=== PATIENT | female | born 1940 | race Caucasian/White ===

== ENCOUNTER 2019-11-05 09:48 | Inpatient (IN) ==
[2019-11-05] MEDS ORDERED: Acetaminophen IV 1,000 MG/100 ML INFUS..BTL IVPB ONE (10:13)
[2019-11-05] MEDS ORDERED: *HR* HYDROmorphone PF 0.5 MG/0.5 ML SYRINGE IVP PRN (10:13)
[2019-11-05] MEDS ORDERED: *HR* OxyCODONE Immed Rel 5 MG TABLET PO PRN (10:13)
[2019-11-05] MEDS ORDERED: *HR* Meperidine 25 MG/ML SYRINGE IVP PRN (10:13)
[2019-11-05] MEDS ORDERED: Ondansetron 4 MG/2 ML VIAL IVP ONE (10:13)
[2019-11-05] MEDS ORDERED: *HR* FentaNYL (PF) 100 MCG/2 ML VIAL ONE (10:18)
[2019-11-05] MEDS ORDERED: *HR* Midazolam HCl 2 MG/2 ML VIAL ONE (10:18)
[2019-11-05] MEDS ORDERED: Lidocaine -MPF 2% 2 ML VIAL ONE (10:20)
[2019-11-05] MEDS ORDERED: Ondansetron 4 MG/2 ML VIAL ONE (10:20)
[2019-11-05] MEDS ORDERED: *HR* Propofol 200 MG/20 ML VIAL IVP ONE ×2 (10:20→12:57)
[2019-11-05] MEDS ORDERED: *HR* Succinylcholine 200 MG/10 ML VIAL IVP ONE (10:20)
[2019-11-05] MEDS ORDERED: Dexamethasone 4 MG/ML VIAL ONE (10:20)
[2019-11-05] MEDS ORDERED: Scopolamine Patch 1.5 MG PATCH.TD72 TD ONE (10:39)
[2019-11-05] MEDS ORDERED: CeFAZolin Syr 2,000MG/20 ML 2,000 MG/20 ML SYRINGE IVPB ONE (10:40)
[2019-11-05] MEDS ORDERED: Ringers Solution, Lactated 1,000 ML IVC SCH ×2 (10:45→14:33)
[2019-11-05] MEDS ORDERED: Ropivacaine/PF 0.5% 30 ML VIAL ONE (11:00)
[2019-11-05] MEDS ORDERED: Ethanol\\Acetic Acid\\Na Ace\\Ben 1,000 ML IRRIG.SOLN IR ONE (11:12)
[2019-11-05] MEDS ORDERED: Famotidine 20 MG/2 ML VIAL ONE (11:53)
[2019-11-05] MEDS ORDERED: Metoclopramide 10 MG/2 ML VIAL ONE (12:18)
[2019-11-05 14:11] LABS: Hematocrit 34.2 % (35.3-44.9); Hemoglobin 11.6 g/dL (11.5-15.4)
[2019-11-05] MEDS ORDERED: D5% in Water 1,000 ML IVC PRN (14:33)
[2019-11-05] MEDS ORDERED: *HR* Dextrose 50 % in Water (Syg) 50 ML SYRINGE IVP PRN (14:33)
[2019-11-05] MEDS ORDERED: Dextrose Gel 15 GM/37.5 ML TUBE PO PRN ×2 (14:33)
[2019-11-05] MEDS ORDERED: Ondansetron 4 MG/2 ML VIAL IVP PRN (14:33)
[2019-11-05] MEDS: Insulin LISPRO 300 UNITS/3 ML VIAL SQ SCH ×2 (15:18→17:27)
[2019-11-05] MEDS: *HR* Enoxaparin 30 MG/0.3 ML SYRINGE SQ SCH (17:32)
[2019-11-05] MEDS ORDERED: Metoprolol XL (24 HR) Succ 25 MG TAB.ER.24H PO SCH (18:00)
[2019-11-05] MEDS ORDERED: polyethylene glycoL 3350 17 GM POWD.PACK PO SCH (18:00)
[2019-11-05] MEDS ORDERED: *HR* Enoxaparin 30 MG/0.3 ML SYRINGE SQ SCH (18:00)
[2019-11-05] MEDS ORDERED: estradioL 1 MG TABLET PO SCH (18:00)
[2019-11-05] MEDS: ceFAZolin 2,000 MG in 0.9 % Sodium Chloride 100 ML IVPB SCH (20:40)
[2019-11-05] MEDS: *HR* Metformin 500 MG TABLET PO SCH (20:40)
[2019-11-05] MEDS ORDERED: Sennosides 8.6 MG TABLET PO PRN (21:00)
[2019-11-05] MEDS ORDERED: Temazepam 15 MG CAPSULE PO PRN (21:00)
[2019-11-05] MEDS ORDERED: Insulin LISPRO 300 UNITS/3 ML VIAL SQ SCH (21:00)
[2019-11-05] MEDS ORDERED: MOM Conc 10 ML UD.LIQ PO PRN (21:00)
[2019-11-05] MEDS ORDERED: HYDROcodone BIT/Homatropine 5 MG TABLET PO PRN (21:01)
[2019-11-05] MEDS ORDERED: Naloxone 0.4 MG/ML INJ IVP PRN (21:01)
[2019-11-05] MEDS: *HR* OxyCODONE Immed Rel 5 MG TABLET PO PRN (23:11)
[2019-11-06 03:12] LABS: Hematocrit 32.2 % (35.3-44.9); Hemoglobin 10.5 g/dL (11.5-15.4)
[2019-11-06 03:29] LABS: BUN/Creatinine Ratio 24 (6-26); Blood Urea Nitrogen 17 mg/dL (8-23); Calcium 9.1 mg/dL (8.6-10.3); Carbon Dioxide 24 mEq/L (23-29); Chloride 105 mEq/L (98-107); Glucose 169 mg/dL (70-105); Osmolality,Calculated 289 (280-300); Potassium 3.6 mEq/L (3.5-5.1); Sodium 137 mEq/L (136-145); eGFR For African Americans > 60 (> 60); eGFR For Non-African Americans > 60 (> 60)
[2019-11-06] MEDS: ceFAZolin 2,000 MG in 0.9 % Sodium Chloride 100 ML IVPB SCH (04:51)
[2019-11-06] MEDS: *HR* Enoxaparin 30 MG/0.3 ML SYRINGE SQ SCH (06:34)
[2019-11-06 07:03] VITALS: BP 119/58
[2019-11-06] MEDS ORDERED: Magnesium Oxide 400 MG TABLET PO SCH (09:00)
[2019-11-06] MEDS ORDERED: Cholecalciferol (D-3) 1,000 UNIT (25MCG) TABLET PO SCH (09:00)
[2019-11-06] MEDS ORDERED: SELENIUM 100 MCG PO SCH (09:00)
[2019-11-06] MEDS ORDERED: Ascorbic Acid 500 MG TABLET PO SCH (09:00)
[2019-11-06] MEDS ORDERED: NON-FORMULARY MEDICATION 1 EACH EACH (Biotin 1 MG) PO SCH (09:00)
[2019-11-06] MEDS ORDERED: BETA CAROTENE 10000 UNIT PO SCH (09:00)
[2019-11-06] MEDS ORDERED: Vitamin E 200 UNIT (90MG) CAPSULE PO SCH (09:00)
[2019-11-06] MEDS: Insulin LISPRO 300 UNITS/3 ML VIAL SQ SCH (09:53)
[2019-11-06] MEDS: *HR* Metformin 500 MG TABLET PO SCH (09:59)
[2019-11-06] MEDS: *HR* OxyCODONE Immed Rel 5 MG TABLET PO PRN (10:05)
== END 2019-11-06 13:22 | disposition home or self-care (01) | DRG 483 ==
LOC: SAMDAY 09:48 → 3NENU 14:55
PROVIDERS: ADMIT Orthopaedic Surgery; ATTEND Orthopaedic Surgery

== ENCOUNTER 2019-11-30 12:44 | Inpatient (IN) ==
[2019-11-30] MEDS ORDERED: Ondansetron 4 MG/2 ML VIAL IVP PRN (16:01)
[2019-11-30] MEDS ORDERED: Naloxone 0.4 MG/ML INJ IVP PRN (16:01)
[2019-11-30] MEDS ORDERED: Gadolinium Contrast Agent (WT Based) IV PRN ×3 (16:05→16:35)
[2019-11-30] MEDS ORDERED: D5% in Water 1,000 ML IVC PRN (16:38)
[2019-11-30] MEDS ORDERED: *HR* Dextrose 50 % in Water (Syg) 50 ML SYRINGE IVP PRN (16:38)
[2019-11-30] MEDS ORDERED: Dextrose Gel 15 GM/37.5 ML TUBE PO PRN ×2 (16:38)
[2019-11-30 17:31] LABS: Basophils % 0.6 %; Eosinophils # 0.1 K/mcL (0.0-0.6); Eosinophils % 1.8 %; Hematocrit 35.9 % (35.3-44.9); Hemoglobin 11.9 g/dL (11.5-15.4); Immature Granulocytes % 0.1 % (0-4); Lymphocytes # 2.2 K/mcL (0.6-4.6); Lymphocytes % 30.5 %; Mean Corpuscular HGB Conc 33.1 g/dL (31.6-35.5); Mean Corpuscular Hemoglobin 30.4 pg (28.0-33.3); Mean Corpuscular Volume 91.8 fL (83.0-100.0); Mean Platelet Volume 9.8 fL (9.4-12.4); Monocytes # 0.9 K/mcL (0.0-1.3); Monocytes % 12.4 %; Neutrophils # 3.9 K/mcL (1.6-8.9); Platelet Count 485 K/mcL (140-400); Red Blood Count 3.91 M/mcL (3.82-4.97); Red Cell Distribution Width 15.1 % (11.5-14.5); Segmented Neutrophils % 54.6 %; White Blood Count 7.2 K/mcL (4.3-11.1)
[2019-11-30 17:39] LABS: BUN/Creatinine Ratio 20 (6-26); Blood Urea Nitrogen 16 mg/dL (8-23); Calcium 9.6 mg/dL (8.6-10.3); Carbon Dioxide 26 mEq/L (23-29); Chloride 103 mEq/L (98-107); Glucose 166 mg/dL (70-105); Osmolality,Calculated 291 (280-300); Potassium 3.6 mEq/L (3.5-5.1); Sodium 138 mEq/L (136-145); eGFR For African Americans > 60 (> 60); eGFR For Non-African Americans > 60 (> 60)
[2019-11-30] MEDS: Insulin LISPRO 300 UNITS/3 ML VIAL SQ SCH ×2 (17:41→21:20)
[2019-11-30] MEDS: Sennosides/Docusate Sodium TABLET PO SCH (21:19)
[2019-11-30] MEDS: Acetaminophen 325 MG TABLET PO PRN (21:19)
[2019-11-30] MEDS: *HR* Heparin 5,000 UNIT/ML VIAL SQ SCH (21:20)
[2019-11-30] MEDS: *HR* HYDROmorphone 2 MG/ML SYRINGE IVP PRN (21:21)
[2019-12-01] MEDS: *HR* HYDROmorphone 2 MG/ML SYRINGE IVP PRN ×6 (00:56→21:25)
[2019-12-01 01:01] LABS: Bilirubin,Urine Negative (Negative); Blood,Urine Negative (Negative); Clarity,Urine Clear (Clear); Color,Urine Yellow (Yellow); Glucose,Urine (UA) 100 mg/dL (Normal); Ketones,Urine Negative (Negative); Leukocyte Esterase,Urine Negative (Negative); Nitrite,Urine Negative (Negative); Protein,Urine Negative (Neg-Trace); Specific Gravity,Urine 1.023 (1.010-1.025); Urobilinogen,Urine Normal (Normal)
[2019-12-01] MEDS: *HR* Heparin 5,000 UNIT/ML VIAL SQ SCH ×3 (05:01→20:55)
[2019-12-01 05:27] LABS: Basophils # 0.1 K/mcL (0.0-0.2); Eosinophils # 0.2 K/mcL (0.0-0.6); Eosinophils % 3.1 %; Hematocrit 34.4 % (35.3-44.9); Hemoglobin 11.4 g/dL (11.5-15.4); Immature Granulocytes % 0.2 % (0-4); Lymphocytes # 2.5 K/mcL (0.6-4.6); Lymphocytes % 40.9 %; Mean Corpuscular HGB Conc 33.1 g/dL (31.6-35.5); Mean Corpuscular Hemoglobin 30.4 pg (28.0-33.3); Mean Corpuscular Volume 91.7 fL (83.0-100.0); Mean Platelet Volume 9.8 fL (9.4-12.4); Monocytes # 0.8 K/mcL (0.0-1.3); Monocytes % 12.3 %; Neutrophils # 2.6 K/mcL (1.6-8.9); Platelet Count 452 K/mcL (140-400); Red Blood Count 3.75 M/mcL (3.82-4.97); Red Cell Distribution Width 15.1 % (11.5-14.5); Segmented Neutrophils % 42.5 %; White Blood Count 6.2 K/mcL (4.3-11.1)
[2019-12-01 05:54] LABS: BUN/Creatinine Ratio 31 (6-26); Blood Urea Nitrogen 21 mg/dL (8-23); Calcium 9.7 mg/dL (8.6-10.3); Carbon Dioxide 25 mEq/L (23-29); Chloride 100 mEq/L (98-107); Glucose 209 mg/dL (70-105); Magnesium 2.1 mg/dL (1.6-2.6); Osmolality,Calculated 289 (280-300); Sodium 135 mEq/L (136-145); eGFR For African Americans > 60 (> 60); eGFR For Non-African Americans > 60 (> 60)
[2019-12-01 07:46] LABS: Estimated Average Glucose 189 mg/dl
[2019-12-01] MEDS ORDERED: *HR* LORazepam 2 MG/ML VIAL IVP PRN (08:10)
[2019-12-01] MEDS: Insulin LISPRO 300 UNITS/3 ML VIAL SQ SCH ×4 (08:27→22:07)
[2019-12-01] MEDS: polyethylene glycoL 3350 17 GM POWD.PACK PO SCH (08:28)
[2019-12-01] MEDS: Sennosides/Docusate Sodium TABLET PO SCH ×2 (08:28→20:55)
[2019-12-01] MEDS ORDERED: *HR* HYDROmorphone 2 MG/ML SYRINGE IVP PRN (09:04)
[2019-12-01] MEDS ORDERED: Gadolinium Contrast Agent (WT Based) IV PRN (09:05)
[2019-12-02] MEDS: *HR* HYDROmorphone 2 MG/ML SYRINGE IVP PRN ×2 (01:31→05:27)
[2019-12-02] MEDS: *HR* Heparin 5,000 UNIT/ML VIAL SQ SCH ×3 (05:24→20:43)
[2019-12-02 05:25] LABS: Basophils # 0.1 K/mcL (0.0-0.2); Basophils % 0.7 %; Eosinophils # 0.2 K/mcL (0.0-0.6); Eosinophils % 2.8 %; Hematocrit 38.7 % (35.3-44.9); Hemoglobin 12.5 g/dL (11.5-15.4); Immature Granulocytes % 0.1 % (0-4); Lymphocytes # 2.8 K/mcL (0.6-4.6); Lymphocytes % 40.5 %; Mean Corpuscular HGB Conc 32.3 g/dL (31.6-35.5); Mean Corpuscular Hemoglobin 29.6 pg (28.0-33.3); Mean Corpuscular Volume 91.7 fL (83.0-100.0); Mean Platelet Volume 9.8 fL (9.4-12.4); Monocytes # 0.7 K/mcL (0.0-1.3); Monocytes % 9.9 %; Neutrophils # 3.2 K/mcL (1.6-8.9); Platelet Count 472 K/mcL (140-400); Red Blood Count 4.22 M/mcL (3.82-4.97); White Blood Count 6.9 K/mcL (4.3-11.1)
[2019-12-02 05:52] LABS: BUN/Creatinine Ratio 31 (6-26); Blood Urea Nitrogen 22 mg/dL (8-23); Calcium 9.8 mg/dL (8.6-10.3); Carbon Dioxide 27 mEq/L (23-29); Chloride 101 mEq/L (98-107); Glucose 182 mg/dL (70-105); Osmolality,Calculated 288 (280-300); Potassium 3.9 mEq/L (3.5-5.1); Sodium 135 mEq/L (136-145); eGFR For African Americans > 60 (> 60); eGFR For Non-African Americans > 60 (> 60)
[2019-12-02] MEDS: Sennosides/Docusate Sodium TABLET PO SCH ×2 (08:05→20:42)
[2019-12-02] MEDS: polyethylene glycoL 3350 17 GM POWD.PACK PO SCH (08:05)
[2019-12-02] MEDS: Insulin LISPRO 300 UNITS/3 ML VIAL SQ SCH ×3 (08:13→16:42)
[2019-12-02] MEDS: *HR* OxyCODONE/APAP 7.5/325 TABLET PO PRN ×2 (11:38→20:43)
[2019-12-02] MEDS ORDERED: *HR* Dextrose 50 % in Water (Syg) 50 ML SYRINGE IVP PRN (15:54)
[2019-12-02] MEDS ORDERED: Dextrose Gel 15 GM/37.5 ML TUBE PO PRN ×2 (15:54)
[2019-12-02] MEDS ORDERED: D5% in Water 1,000 ML IVC PRN (15:54)
[2019-12-02] MEDS ORDERED: Insulin DETEMIR 100 UNIT/ML X5UNITS SQ ONE ×2 (15:56→16:46)
[2019-12-02] MEDS: Gabapentin 100 MG CAPSULE PO SCH ×2 (16:37→20:43)
[2019-12-02] MEDS: predniSONE 20 MG TABLET PO SCH (16:37)
[2019-12-03] MEDS ORDERED: *HR* OxyCODONE Immed Rel 5 MG TABLET PO STA (01:42)
[2019-12-03 02:12] LABS: Basophils % 0.6 %; Eosinophils # 0.2 K/mcL (0.0-0.6); Eosinophils % 2.9 %; Hemoglobin 12.6 g/dL (11.5-15.4); Immature Granulocytes % 0.3 % (0-4); Lymphocytes # 2.5 K/mcL (0.6-4.6); Lymphocytes % 37.4 %; Mean Corpuscular HGB Conc 32.3 g/dL (31.6-35.5); Mean Corpuscular Hemoglobin 29.6 pg (28.0-33.3); Mean Corpuscular Volume 91.5 fL (83.0-100.0); Mean Platelet Volume 9.9 fL (9.4-12.4); Monocytes # 0.7 K/mcL (0.0-1.3); Monocytes % 9.9 %; Neutrophils # 3.2 K/mcL (1.6-8.9); Platelet Count 473 K/mcL (140-400); Red Blood Count 4.26 M/mcL (3.82-4.97); Red Cell Distribution Width 15.1 % (11.5-14.5); Segmented Neutrophils % 48.9 %; White Blood Count 6.6 K/mcL (4.3-11.1)
[2019-12-03 02:25] LABS: BUN/Creatinine Ratio 26 (6-26); Blood Urea Nitrogen 18 mg/dL (8-23); Calcium 9.7 mg/dL (8.6-10.3); Carbon Dioxide 25 mEq/L (23-29); Chloride 103 mEq/L (98-107); Glucose 207 mg/dL (70-105); Magnesium 2.1 mg/dL (1.6-2.6); Osmolality,Calculated 292 (280-300); Potassium 3.9 mEq/L (3.5-5.1); Sodium 137 mEq/L (136-145); eGFR For African Americans > 60 (> 60); eGFR For Non-African Americans > 60 (> 60)
[2019-12-03] MEDS: *HR* Heparin 5,000 UNIT/ML VIAL SQ SCH ×3 (04:55→22:01)
[2019-12-03] MEDS: *HR* OxyCODONE/APAP 7.5/325 TABLET PO PRN ×4 (04:56→22:44)
[2019-12-03] MEDS: polyethylene glycoL 3350 17 GM POWD.PACK PO SCH (08:54)
[2019-12-03] MEDS: Gabapentin 100 MG CAPSULE PO SCH ×3 (08:55→22:00)
[2019-12-03] MEDS: predniSONE 20 MG TABLET PO SCH (08:56)
[2019-12-03] MEDS ORDERED: Insulin DETEMIR 100 UNIT/ML X5UNITS SQ SCH (09:00)
[2019-12-03] MEDS: Insulin LISPRO 300 UNITS/3 ML VIAL SQ SCH ×3 (10:09→16:40)
[2019-12-03] MEDS ORDERED: Temazepam 15 MG CAPSULE PO PRN (16:25)
[2019-12-03] MEDS ORDERED: Insulin LISPRO 300 UNITS/3 ML VIAL SQ SCH (17:00)
[2019-12-03] MEDS ORDERED: Metoprolol XL (24 HR) Succ 25 MG TAB.ER.24H PO SCH (18:00)
[2019-12-04] MEDS: Acetaminophen 325 MG TABLET PO PRN ×2 (02:47→15:20)
[2019-12-04 04:48] LABS: Basophils % 0.2 %; Eosinophils # 0.1 K/mcL (0.0-0.6); Hematocrit 36.4 % (35.3-44.9); Immature Granulocytes % 0.3 % (0-4); Lymphocytes # 2.4 K/mcL (0.6-4.6); Mean Corpuscular Hemoglobin 29.9 pg (28.0-33.3); Mean Corpuscular Volume 90.8 fL (83.0-100.0); Mean Platelet Volume 10.1 fL (9.4-12.4); Monocytes % 10.9 %; Neutrophils # 5.7 K/mcL (1.6-8.9); Platelet Count 436 K/mcL (140-400); Red Blood Count 4.01 M/mcL (3.82-4.97); Red Cell Distribution Width 14.7 % (11.5-14.5); Segmented Neutrophils % 61.6 %; White Blood Count 9.3 K/mcL (4.3-11.1)
[2019-12-04 05:04] LABS: BUN/Creatinine Ratio 35 (6-26); Blood Urea Nitrogen 24 mg/dL (8-23); Calcium 9.5 mg/dL (8.6-10.3); Carbon Dioxide 25 mEq/L (23-29); Chloride 98 mEq/L (98-107); Glucose 187 mg/dL (70-105); Osmolality,Calculated 281 (280-300); Potassium 3.7 mEq/L (3.5-5.1); Sodium 131 mEq/L (136-145); eGFR For African Americans > 60 (> 60); eGFR For Non-African Americans > 60 (> 60)
[2019-12-04] MEDS: *HR* Heparin 5,000 UNIT/ML VIAL SQ SCH (05:19)
[2019-12-04] MEDS ORDERED: Insulin DETEMIR 100 UNIT/ML X5UNITS SQ SCH (09:00)
[2019-12-04] MEDS ORDERED: Magnesium Oxide 400 MG TABLET PO SCH (09:00)
[2019-12-04] MEDS ORDERED: Ascorbic Acid 500 MG TABLET PO SCH (09:00)
[2019-12-04] MEDS ORDERED: Cholecalciferol (D-3) 1,000 UNIT (25MCG) TABLET PO SCH (09:00)
[2019-12-04] MEDS: Gabapentin 100 MG CAPSULE PO SCH (09:40)
[2019-12-04] MEDS: predniSONE 20 MG TABLET PO SCH (09:41)
[2019-12-04] MEDS: polyethylene glycoL 3350 17 GM POWD.PACK PO SCH (09:41)
[2019-12-04] MEDS: *HR* OxyCODONE/APAP 7.5/325 TABLET PO PRN (10:13)
[2019-12-04 14:50] VITALS: BP 145/81
== END 2019-12-04 15:49 | DRG 552 ==
LOC: 3NENU → SUATTDRO 14:48
PROVIDERS: ADMIT Student in an Organized Health Care Education/Training Program; ATTEND Pharmacist